=== PATIENT | male | born 1970 | race Caucasian/White ===

== ENCOUNTER 2017-11-15 08:22 | Emergency (ER) | payer SELFPAY ==
[~2017-11-15] VITALS: Ht 182.9 cm; Wt 71.3 kg
[~2017-11-15 08:22] MED LIST: CEPH500C3 PO; PERC10TA27 PO
[2017-11-15 08:26] VITALS: BP 153/91; PULSE 70; RESP 18; TEMP 98.3; O2SAT 98
[2017-11-15] MEDS ORDERED: PENI500T PO (09:05)
--- NOTE | 2017-11-15 09:08 | PD ---
HPI Chief Complaint: Oral / Dental Pain or Problem Time Seen by Provider: 08:59 Travel History International Travel<30 days: No Contact w/Intl Traveler<30days: No Traveled to known affect area: No History of Present Illness HPI 47y male presents to the ED c/o left upper jaw pain that started yesterday afternoon. Patient says that he has "bad teeth" and has had these abscesses before. Patient states that he does not feel any fluctuance it does not have any unusual taste in his mouth. Denies fever, chills, chest pain, shortness of breath. Says the pain is mild to moderate and aching, constant. He has no other health complaints today. Patient states that he is going to a dentist as soon as this infection has decreased. Says that penicillin or amoxicillin usually work for his infections. PFSH Past Medical History Medical History: Denies Significant Hx Heart Rhythm Problems: Yes (HX BRADYCARDIA) Cancer: No Cardiovascular Problems: No Diminished Hearing: No Endocrine: No Genitourinary: No Hypertension: Yes Immune Disorder: No Musculoskeletal: Yes (RIGHT SHOULDER INJURY 05/23/08 SKATEBOARD FALL) Neurologic: No Psychiatric: No Reproductive: No Respiratory: No Immunizations Current: Yes Influenza Vaccination: No Past Surgical History Cholecystectomy: Yes Other Surgery: Yes (NASAL FX REPAIR) Social History Alcohol Use: Yes (5-6 BEERS DAILY) Tobacco Use: Yes (1 PPD) Substance Use: No Allergies-Medications (Allergen,Severity, Reaction): Coded Allergies: No Known Allergies (Verified Adverse Reaction, Unknown, 11/15/17) Reported Meds & Prescriptions Reported Meds & Active Scripts Active Penicillin V Potassium 500 Mg Tab 500 Mg PO Q8H 7 Days Review of Systems Except as stated in HPI: all other systems reviewed are Neg Physical Exam Narrative GENERAL: Well-developed, well-nourished in no apparent distress SKIN: Focused skin assessment warm/dry. HEAD: Atraumatic. Normocephalic. EYES: Pupils equal and round. No scleral icterus. No injection or drainage. ENT: No nasal bleeding or discharge. Mucous membranes pink and moist. Left upper premolar region-area of bulging to the cheek without fluctuance, erythema, temperature. Mild tenderness palpation of the gingiva. No fluctuance , no drainage NECK: Trachea midline. No JVD. No lymphadenopathy CARDIOVASCULAR: Regular rate and rhythm. No murmur appreciated. RESPIRATORY: No accessory muscle use. Clear to auscultation. Breath sounds equal bilaterally. MUSCULOSKELETAL: No obvious deformities. No clubbing. No cyanosis. No edema. NEUROLOGICAL: Awake and alert. No obvious cranial nerve deficits. Motor grossly within normal limits. Normal speech. PSYCHIATRIC: Appropriate mood and affect; insight and judgment normal. Data Data Last Documented VS Vital Signs Date Time Temp Pulse Resp B/P (MAP) Pulse Ox O2 Delivery O2 Flow Rate FiO2 11/15/17 08:26 98.3 70 18 153/91 (111) 98 Room Air MDM Medical Decision Making Medical Screen Exam Complete: Yes Emergency Medical Condition: Yes Differential Diagnosis Dental infection, tooth abscess, gingivitis Narrative Course 47y male presents to the ED c/o left upper jaw pain that started yesterday afternoon. Patient says that he has "bad teeth" and has had these abscesses before. Patient states that he does not feel any fluctuance it does not have any unusual taste in his mouth. Denies fever, chills, chest pain, shortness of breath. Says the pain is mild to moderate and aching, constant. He has no other health complaints today. Patient states that he is going to a dentist as soon as this infection has decreased. Says that penicillin or amoxicillin usually work for his infections. Vital signs are stable. The exam findings consistent with a dental infection without evidence of spread , fluctuance. Patient will receive penicillin and advised follow-up with his primary care physician in dentist for further treatment and evaluation. Patient advised to return to emergency room for worsening or persistent symptoms. Diagnosis Primary Impression: Dental infection Referrals: Dentist Patient Instructions: Dental Abscess (ED), General Instructions Additional Instructions: Follow up with your dentist as discussed. Follow up with your primary care physician within 2-3 days. Take all medications as prescribed. If your symptoms worsen or persist, return to the ED for further treatment or evaluation. Scripts Penicillin V Potassium (Penicillin V Potassium) 500 Mg Tab 500 MG PO Q8H for Infection for 7 Days, #21 TAB 0 Refills Prov: Jordin Arnold MD 11/15/17 Disposition: 01 DISCHARGE HOME Condition: Stable Neda Langley Nov 15, 2017 09:08
== END 2017-11-15 09:40 | disposition home or self-care (01) ==
LOC: PHED 08:22 → PHEFT 09:40
DX: K04.7 Periapical abscess without sinus (principal); R00.1 Bradycardia, unspecified; I10 Essential (primary) hypertension; F17.200 Nicotine dependence, unspecified, uncomplicated
CPT/HCPCS: 99283